=== PATIENT | female | born 1950 | race Caucasian/White ===

== ENCOUNTER 2022-08-06 07:26 | Day surgery (SDC) | payer MEDICARE ==
[~2022-08-06 07:26] MED LIST: Propofol 200 MG/20 ML SDV ONE; fentaNYL 50 MCG/ML SDV ONE
[2022-08-06] MEDS ORDERED: fentaNYL 50 MCG/ML SDV IV ONE (07:27)
[2022-08-06] MEDS ORDERED: Propofol 200 MG/20 ML SDV IV ONE (07:27)
[2022-08-06] MEDS ORDERED: Dextrose 5%-Lactated Ringers 1,000 ML IV SCH (08:00)
[2022-08-06] MEDS ORDERED: Propofol 200 MG/20 ML SDV ONE (08:26)
[2022-08-06 09:18] VITALS: PULSE 67
[2022-08-06 09:49] VITALS: BP 155/69
== END 2022-08-06 09:51 | disposition home or self-care (01) ==
LOC: JP.SDS 07:26
PROVIDERS: ATTEND Family Medicine
DX: Z12.11 Encounter for screening for malignant neoplasm of colon (principal); D12.2 Benign neoplasm of ascending colon; D12.0 Benign neoplasm of cecum; E11.9 Type 2 diabetes mellitus without complications; Z88.0 Allergy status to penicillin; Z86.010 Personal history of colon polyps; Z85.048 Personal history of other malignant neoplasm of rectum, rectosigmoid junction, and anus; Z98.890 Other specified postprocedural states; Z79.899 Other long term (current) drug therapy; J44.9 Chronic obstructive pulmonary disease, unspecified
CPT/HCPCS: 45380; 88305; J2704; J3010; J7121